=== PATIENT | male | born 1970 | race Caucasian/White ===

== ENCOUNTER 2017-01-19 21:00 | Emergency (ER) | payer OTHER ==
[~2017-01-19] VITALS: Ht 177.8 cm; Wt 100.0 kg
[2017-01-19 21:10] VITALS: BP 126/83; PULSE 85; RESP 16; O2SAT 97
--- NOTE | 2017-01-19 23:17 | ED.REPORT ---
HPI-Back Pain 40 and Over Date of Service Jan 19, 2017 ED Provider: Cuate Lai MD The patient is an otherwise healthy 46 year old male who presents to the ED due to right leg pain onset last night. Pt reports progressive sciatica loss over the past 24 hrs. He was woken up by the pain at 0200 and thinks he pulled a muscle. He associates lower back pain which spreads to the right hip and down the right leg. He took 2 Aleve and 800mg Ibuprofen, with little to no relief. He describes that it feels like his right leg fell asleep. He is able to bear weight on the leg. The leg feels numb, but he can feel the doctor touching his leg. He denies fevers, chills, incontinence and drug use. Pt has a hx of a lower back injury and a bulging disk. Nursing Notes Stated Complaint: LOW BACK PAIN, RIGHT LEG NUMBNESS Chief Complaint: Back Pain or Injury Nursing Notes Reviewed: Yes Allergies: Coded Allergies: No Known Allergies (Unverified , 01/19/17) General Time Seen by MD: 23:16 Chief Complaint Other (right leg numbness) Hx Obtained From: Patient Arrived By: Walk-in Sudden in Onset?: Yes Onset Occurred: 13 - 16 hours ago Severity: Current: Moderate Recent Healthcare: No recent doctor visit, No recent hospitalization Similar Sx Previous: No Past Medical History Past Medical History bulging disk Smoking History Unknown if Ever Smoker Social History Other Social History: Good social support, , Local resident Ambulatory Status Independent Review of Systems Constitutional: Denies: Chills, Fever Male: Denies Incontinence Musculoskeletal: Reports: Back pain, Extremity pain (right leg), Joint pain ( right hip) Neurologic: Reports: Numbness Complete sys rev & neg: except as marked. Physical Exam Initial Vital Signs Vital Signs (First) Date Time Temp Pulse Resp B/P Pulse Ox O2 Delivery O2 Flow Rate FiO2 01/19/17 21:10 36.7 85 16 126/83 97 Room Air Initial VS: Reviewed Head / Eyes: Atraumatic, Normocephalic, PERRL ENT: Mucous membranes moist, Conjunctiva normal, No scleral icterus Neck: Supple, Non-tender, Full range of motion Lymphatic: No lymphadenopathy Skin: Warm, Dry, No cyanosis Psychiatric: Mood/affect normal, Behavior normal, Normal thought content General/Constitutional: Awake, Alert, No acute distress, Cooperative, Not toxic appearing Respiratory / Chest: Atraumatic, Breath sounds NL, Breath sounds = bilat, No respiratory distress Cardiovascular: Heart rate NL, Regular rhythm, Heart sounds NL Abdomen: Atraumatic, Soft, Non-tender Back: Atraumatic, Inspection NL, Full range of motion Neurologic: Oriented X3, Speech NL, No motor deficits Lower Extremity / Pelvis / MS: Atraumatic, No deformity, Vascular intact intact reflexes subject to decreased sensation intact strength Interpretation & Diagnostics Lab Results Interpretation Result Diagram: 01/20/17 0012 01/20/17 0012 Test 01/20/17 00:12 White Blood Count 8.1th/mm3 (3.8-10.1) Red Blood Count 5.12mil/mm3 (4.40-5.80) Hemoglobin 16.1g/dL (13.8-17.2) Hematocrit 45.1% (41.0-50.0) Mean Corpuscular Volume 88fL (81-100) Mean Corpuscular Hemoglobin 31.4pg (27.0-35.0) Mean Corpuscular Hemoglobin Concent 35.7% (32.0-37.0) Red Cell Distribution Width 11.5% (12.3-15.4) Platelet Count 213bil/L (150-400) Neutrophils (%) (Auto) 68.4% (40-74) Lymphocytes (%) (Auto) 18.3% (14-46) Monocytes (%) (Auto) 9.7% (4-12) Eosinophils (%) (Auto) 3.2% (0-5) Basophils (%) (Auto) 0.4% (0-3) Sodium Level 139mEq/L (134-144) Potassium Level 4.7mEq/L (3.5-5.2) Chloride Level 106mEq/L (97-108) Carbon Dioxide Level 22mmol/L (18-29) Blood Urea Nitrogen 16mg/dL (6-24) Creatinine 0.91mg/dL (0.76-1.27) Estimat Glomerular Filtration Rate 95mL/min (>59) Glucose Level 114mg/dL (60-99) Calcium Level 8.6mg/dL (8.5-10.1) Total Bilirubin 0.5mg/dL (0.0-1.2) Aspartate Amino Transf (AST/SGOT) 29U/L (0-50) Alanine Aminotransferase (ALT/SGPT) 45U/L (0-44) Alkaline Phosphatase 76U/L (25-150) Total Protein 6.4g/dL (6.4-8.4) Albumin 4.1g/dL (3.4-5.0) Re-Eval/Medical Decision Med Decision/Clinical Course 38-year-old with intermittent sciatic symptoms presents now with six hours of continuous numbness in the right leg. Reflexes intact. No bowel or bladder complaints to suggest cauda equina syndrome. Discussed with radiology and MRI has been arranged. Signed out at [address] Whittaker Counseled Regarding: Diagnosis, Lab results, Need for follow-up, When/why to return to ED Discharge & Departure Impression: Primary Impression: Sciatica of right side Disposition: Home Discharge Condition All VS Reviewed: Yes Condition: Stable Referrals: Crystal Duran MD (PCP) Care Transferred to: [facility] Transferred at: 01:00 Scribe Attestation Portion of this note were transcribed by Franca Arnold. I, Dr. Lai, personally performed the history, physical exam, and medical decision-making: I reviewed and confirmed the accuracy for the information in the transcribed note. Signed by: hima Amaral, 01/19/17 2718 copies to: Crystal Duran MD, Christopher W MD Jan 19, 2017 23:16 Franca Arnold Jan 19, 2017 23:27
[2017-01-19] MEDS ORDERED: Dexamethasone Inj 10 MG in 0.9% Sodium Chloride-Pha MIX 50 ML IV ONE (23:25)
[2017-01-20 00:29] LABS: BASOPHILS % (AUTO) 0.4 % (0-3); EOSINOPHILS % (AUTO) 3.2 % (0-5); MONOCYTES % (AUTO) 9.7 % (4-12); Mean Corpuscular Hemoglobin 31.4 pg (27.0-35.0); Mean Corpuscular Volume 88 fL (81-100); NEUTROPHILS % (AUTO) 68.4 % (40-74); Platelet Count 213 bil/L (150-400)
[2017-01-20 01:35] LABS: ERYTHROCYTE SEDIMENTATION RATE 2 mm/hr (0-15)
[2017-01-20] MEDS: HYDROmorphone 0.5 mg/0.5 mL iSecure Syringe IVPUSH PRN ×2 (04:09→06:58)
[2017-01-20 04:36] VITALS: BP_SYST 11; BP_SYST 121; BP_DIAS 69; RESP 16; O2SAT 94
[2017-01-20 04:39] VITALS: PULSE 69
[2017-01-20 05:04] LABS: APPEARANCE,URINE CLEAR (CLEAR,HAZY); COLOR,URINE YELLOW (YELLOW); OCCULT BLOOD,URINE NEGATIVE (NEGATIVE); PH,URINE 5.5 (5.0-8.0); UROBILINOGEN,URINE NORMAL (NORMAL)
[2017-01-20] MEDS ORDERED: OXYC1TAB24 PO (06:22)
[2017-01-20] MEDS ORDERED: PRE20 PO (06:22)
[2017-01-20 06:58] VITALS: BP 97/77; PULSE 66; RESP 16; O2SAT 95
--- NOTE | 2017-01-20 09:26 | DRSVH ---
PROCEDURE: MRI LUMBAR SPINE WITHOUT CONTRAST ([id number]) INDICATIONS: fixed numbness rt leg TECHNIQUE: Noncontrast sagittal T1 spin echo and T2 fast echo, sagittal STIR, axial T1 and T2 fast spin echo thr ough the lumbar spine. In cases with scoliosis, additional coronal T2 fast spin echo may be performe d. COMPARISON: [facility], CT, CT ABD PELVIS W&WO CON IVP, 11/24/2015, 8:55. FINDINGS: Image quality: Excellent. Alignment and Curvature: There are 5 lumbar-type vertebral bodies by plain film. There is minimal gr myrna 1 retrolisthesis of L5 on S1, and otherwise normal bony alignment. Bone Marrow: Marrow is of normal overall signal. No acute vertebral body compression fractures. Spinal Cord: Conus medullaris terminates at the L1-L2 disc space level. Visualized cord demonstrate s normal signal and size. Paraspinous Soft Tissues: No paravertebral masses. L1-L2: Disc desiccation and mild diffuse disc bulge. Bilateral facet hypertrophy. Epidural lipomatosi s. Mild canal stenosis. Mild bilateral foraminal stenosis. L2-L3: Congenital canal stenosis. Bilateral facet and ligamentum flavum hypertrophy. Epidural lipomat osis. There is moderate canal stenosis. Mild bilateral foraminal stenosis. L3-L4: Congenital canal stenosis. Disc desiccation and diffuse disc bulge, with superimposed small ce ntral protrusion. Bilateral facet hypertrophy. Epidural lipomatosis. Moderate canal stenosis. Mild bi lateral foraminal stenosis. L4-L5: Congenital canal stenosis. Disc desiccation and diffuse disc bulge, with superimposed central small protrusion. Bilateral facet hypertrophy. Moderate canal stenosis. Moderate bilateral foraminal stenosis. L5-S1: Congenital canal stenosis. Disc desiccation and diffuse disc bulge, with superimposed right pa racentral disc extrusion, measuring 17 mm anteroposterior by 14 mm craniocaudal by 11 mm transverse. Bilateral facet hypertrophy. There is severe canal stenosis. There is moderate bilateral foraminal st enosis. There is impingement upon the right S1 and S2 nerve roots within the lateral recess and canal . IMPRESSION: 1. Right sided L5-S1 disc extrusion, causing right S1 and S2 nerve root impingement as described malvin franklin. Recommend correlation with clinical symptoms to ascertain relevant of this finding. 2. Diffuse congenital canal stenosis, with superimposed disc and facet disease, causing multilevel mo derate canal stenoses, and mild to moderate foraminal stenoses at the remaining levels as described a keaton. Dictated by: Sujatha Montejo M.D. on 01/20/2017 at 9:06 Approved by: Sujatha Montejo M.D. on 01/20/2017 at 9:24
== END 2017-01-20 06:59 | disposition home or self-care (01) ==
LOC: SED 21:00
DX: M51.17 Intervertebral disc disorders with radiculopathy, lumbosacral region (principal)
CPT/HCPCS: 72148; 80053; 81000; 85025; 85651; 96374; 96375; 96376; 99285; J1100; J1170